=== PATIENT | female | born 1970 | race Hispanic/Latino ===

== ENCOUNTER 2024-03-28 12:16 | Emergency (ER) | payer BC, SELFPAY ==
[2024-03-28 12:33] VITALS: BP 117/71; PULSE 62; RESP 16; TEMP 36.2; O2SAT 100
--- NOTE | 2024-03-28 12:55 | ED_ITS ---
HPI - URI/Sore Throat General Chief Complaint: Upper Respiratory Infection Stated Complaint: right ear issue Time Seen by Provider: 03/28/24 12:58 Source: patient, RN notes reviewed and old records reviewed Mode of arrival: ambulatory Limitations: no limitations History of Present Illness HPI Narrative: Patient presents accompanied by her . Patient is complaining of right ear discomfort that has been present for about 1 week. She feels as though her hearing has decreased. She denies any injury or trauma. She denies all other complaints today. She voices no other concerns. She has not been taking any medication for her symptoms Related Data Home Medications Medication Instructions Recorded Confirmed No Home Medications 03/28/24 03/28/24 Allergies Allergy/AdvReac Type Severity Reaction Status Date / Time No Known Allergies Allergy Unverified 11/12/17 10:44 Review of Systems Review of Systems: All systems reviewed & are unremarkable except as noted in HPI and below Constitutional: Constitutional: Reports no additional constitutional complaints ENT: Reports system reviewed and no additional complaints, except as documented and Reports otalgia Cardiovascular: Cardiovascular: Reports no additional cardiovascular complaints Respiratory: Respiratory: Reports no additional respiratory complaints Gastrointestinal: Gastrointestinal: Reports no additional gastrointestinal complaints PMFSH Comments At the time of my signature, I reviewed and agree with the nursing past medical, surgical, social, and family history. There is no relevant family history pertinent to the patient complaint. Exam Const: General: cooperative, no acute distress, alert and awake Orientation/consciousness: oriented to person, oriented to place and oriented to time HENMT: Head: normal to inspection Ears: TM normal on the left and Abnormal EAC present cerumen impaction on the right Mouth: Yes moist mucous membranes Resp: Effort & Inspection: normal respiratory effort and able to speak in complete sentences Auscultation: clear to auscultation bilaterally, no crackles, no rales, no rhonchi and no wheezes Cardio: Palpation: normal PMI Rate: regular rate Rhythm: regular rhythm Heart sounds: S1 normal heart sound present and S2 normal heart sound present Neuro: General: oriented to person, oriented to place and oriented to time Cranial nerves: Yes CN's II-XII intact bilaterally Psych: Appearance: grossly normal Thought process: Normal thought process present Insight: Good insight present (Psych) Judgement: Good judgement present (Psych) Course Course Level of Care: Express Care Visit Vital Signs Vital signs: Vital Signs Temperature 97.1 F L 03/28/24 12:33 Pulse Rate 62 03/28/24 12:33 Respiratory Rate 16 03/28/24 12:33 Blood Pressure 117/71 03/28/24 12:33 Pulse Oximetry 100 03/28/24 12:33 Oxygen Delivery Room Air 03/28/24 12:33 Temperature 97.1 F L 03/28/24 12:33 Pulse Rate 62 03/28/24 12:33 Respiratory Rate 16 03/28/24 12:33 Blood Pressure 117/71 03/28/24 12:33 Pulse Oximetry 100 03/28/24 12:33 Oxygen Delivery Room Air 03/28/24 12:33 Reviewed Procedures Ear Wax Removal Right Ear: Ear Wax Removal Date: 03/28/24 Ear Wax Removal Time: 13:09 Cerumenolytic Used: other Results: Re-examined: cerumen removed completely TM Examination: TM(s) intact, normal appearance Patient Tolerated Procedure: well Complications: no problems Technique: ear canal irrigated and ear canal curetted MDM - URI/Sore Throat MDM Narrative Medical decision making narrative: Patient feeling much better want cerumen removed from right ear, procedure tolerated without difficulty. Discharge instructions reviewed with patient, as well as provided in writing per nursing staff. The instructions also include specific and strict return/GO TO THE ER as well as f/u information. All questions have been answered, and the patient deny any further questions with discharge and discharge plan. Some parts of this dictation were generated by voice recognition software and may contain typographical and/or grammatical inaccuracies. Differential Diagnosis Differential diagnosis: Likely other (Otitis media, otitis externa) Medical Records Attestation: I reviewed the patient's medical records. Discharge Plan Discharge Clinical Impression: Cerumen impaction Qualifiers: Laterality: right Qualified Code(s): H61.21 - Impacted cerumen, right ear Patient Disposition: Home, Self-Care Condition: Stable Instructions: Antibiotic Form, Carbamide Peroxide (Into the ear) Additional Instructions: Follow-up with primary care provider. Emergency department for new or worse symptoms Patient Language: Icelandic Prescriptions: No Action No Home Medications Follow-up/Referrals: PHYSICIAN,DIRECT SALES PROFESSIONAL [Primary Care Provider] - Time of Disposition: 13:24
== END 2024-03-28 13:32 | disposition home or self-care (01) ==
PROVIDERS: Emergency Provider Nurse Practitioner Family
DX: H61.21 Impacted cerumen, right ear (principal)
CPT/HCPCS: 69210; 99202; G0463

== ENCOUNTER 2024-11-01 14:56 | Emergency (ER) | payer SELFPAY ==
[2024-11-01] VITALS (11 sets, daily range): BP systolic 99–125; BP diastolic 58–64; PULSE 73–89; RESP 19–30; TEMP 36.7–38.4; O2SAT 94–98
--- NOTE | ~2024-11-01 | CT_ITS ---
CLINICAL INDICATION: Fever and weakness. COMPARISON: None. TECHNIQUE: Multiple contiguous axial images of the abdomen and pelvis were performed following the ad ministration of with 100 mL Omnipaque-350 intravenous contrast The dose-length product (DLP) was 328.48 mGy-cm. Automated exposure control and iterative reconstruction technique were employed. FINDINGS/OBSERVATIONS: Visualized lower thorax: Redemonstration of the infiltrate within the superior segment of the left lower lobe, seen on x-ray p erformed 10 minutes earlier. The heart is of normal size, without pericardial effusion. Small hiatal hernia is present. Liver: The liver demonstrates homogeneous enhancement and is not enlarged n. Gallbladder and biliary system: The gallbladder is only minimally distended, and otherwise unremarkable. Pancreas: The pancreas enhances homogeneously without ductal dilatation. Spleen: The spleen enhances homogeneously and is not enlarged . Kidneys: The bilateral kidneys enhance symmetrically without hydronephrosis or renal calculi. Adrenal glands: Unremarkable. Gastrointestinal tract: Fecal stasis within the colon. Appendix: The appendix is not definitively visualized. However, no pericecal inflammatory change is identified suggest the presence of acute appendicitis. Vasculature: Unremarkable. Lymph nodes: No pathologically enlarged or morphologically suspicious lymph nodes within the retroperitoneum or at the root of the mesentery. Pelvic structures: The bladder is decompressed, limiting its evaluation. The uterus is retroverted and retroflexed. Body wall and musculoskeletal: No significant degenerative disease within the lower thoracic or lumbosacral spine. IMPRESSION: Redemonstration of the infiltrate within the superior segment of the left lower lobe. No pathology detected within the remainder of the lower chest, abdomen or pelvis. Reviewed, dictated and finalized at location A. IMPRESSION: Redemonstration of the infiltrate within the superior segment of the left lower lobe. No pathology detected within the remainder of the lower chest, abdomen or pelvi s.
--- NOTE | ~2024-11-01 | XR_ITS ---
CHEST RADIOGRAPH, PA AND LATERAL CLINICAL HISTORY: fever . COMPARISON: None available TECHNIQUE: PA and lateral views of the chest. FINDINGS The cardiomediastinal silhouette is unremarkable. Infiltrate within the superior segment of the left lower lobe. The remainder of the lungs are clear. IMPRESSION: Infiltrate within the superior segment of the left lower lobe, as detailed above. Reviewed, dictated and finalized at location A. IMPRESSION: Infiltrate within the superior segment of the left lower lobe, as detailed noah [email or web address]
[2024-11-01] MEDS: ACETAMINOPHEN 500 MG TABLET 1000 MG PO (15:03)
--- NOTE | 2024-11-01 15:18 | ED_ITS ---
HPI - General Adult General Chief complaint: Fever <Berenice DohertyNEW - Last Filed: 11/01/24 15:21> Stated complaint: Fever <Berenice DohertyNEW - Last Filed: 11/01/24 15:21> Time Seen by Provider: 11/01/24 14:56 <Berenice DohertyNEW - Last Filed: 11/01/24 15:21> Focused HPI: Patient is a 54-year-old female who presents to the ER with a 3 day history of fever, headache, chills, bilateral arm and leg cramping, and fatigue. She has not includes speaking in presents to the ER with a family member who is her acting full time staff interpreter. Patient's full time staff interpreter reports she has no medical history relevant to this ER visit. He reports she has been sleeping all day for the past 3 days. She denies any abdominal pain, back pain, for sore throat. GENERAL: Ill-appearing, well-nourished, and in no acute distress. HEAD: Normocephalic, atraumatic. CHEST: Clear to auscultation. ?No respiratory distress. HEART: Tachycardia and regular rhythm. NEURO: ?Alert and oriented x3. Patient screened in triage and initial orders placed.? ?Additional care and disposition to be based upon?diagnostic testing and treatment. <Berenice McintoshTerri Doherty APRN - Last Filed: 11/01/24 15:21> Source: patient, family and RN notes reviewed <Addis Hobson MD - Last Filed: 11/01/24 21:55> Mode of arrival: ambulatory <Addis Hobson MD - Last Filed: 11/01/24 21:55> Limitations: language barrier <Addis Hobson MD - Last Filed: 11/01/24 21:55> History of Present Illness HPI narrative: This is a 54 year old female who presents with for evaluation of fever and tiredness. He states patient starting having fever off 99 F at home . He states that she has been having chills and fatigue. She is denying shortness of breath, abdominal pain, back pain, shortness of breath, nausea, vomiting or diarrhea. Her states she has mild cough. <Addis Hobson MD - Last Filed: 11/01/24 21:55> Related Data Allergies/adverse reactions: Allergies Allergy/AdvReac Type Severity Reaction Status Date / Time No Known Allergies Allergy Unverified 11/12/17 10:44 <Berenice Doherty APRN - Last Filed: 11/01/24 15:21> Review of Systems 2 Constitutional: Constitutional: Reports chills, Reports fatigue, Reports fever(s) and Denies headache(s) <Addis Hobson MD - Last Filed: 11/01/24 21:55> ENT: Denies sore throat, Denies throat swelling and Denies tongue swelling <Addis Hobson MD - Last Filed: 11/01/24 21:55> Cardiovascular: Cardiovascular: Denies chest pain with activity <Addis Hobson MD - Last Filed: 11/01/24 21:55> Respiratory: Respiratory: Denies chest congestion and Reports cough < Addis Hobson MD - Last Filed: 11/01/24 21:55> Gastrointestinal: Gastrointestinal: Denies diarrhea and Denies nausea < Addis Hobson MD - Last Filed: 11/01/24 21:55> Genitourinary: Genitourinary: Denies nocturia <Addis Hobson MD - Last Filed: 11/01/24 21:55> PMFSH Past Medical History Medical History: Medical History (Updated 11/01/24 @ 17:39 by Addis Hobson MD) Patient denies medical problems <Berenice Doherty APRN - Last Filed: 11/01/24 15:21> Surgical History Surgical History: Surgical History (Updated 11/01/24 @ 17:34 by Addis Hobson MD) No pertinent past surgical history <Berenice Doherty APRN - Last Filed: 11/01/24 15:21> Social History Social History: Social History (Updated 11/01/24 @ 17:34 by Addis Hobson MD) Smoking status: Never smoker <Berenice Doherty APRN - Last Filed: 11/01/24 15:21> Exam 2 Narrative: GENERAL: Well-appearing, well-nourished, and in no acute distress. HEAD: Normocephalic, atraumatic EYES: PERRLA and EOMI, conjunctiva clear without discharge EARS: TM's clear bilaterally without erythema or dullness NOSE: Nares clear, no rhinorrhea or epistaxis THROAT:Mucous membranes moist, Oropharynx normal without erythema, exudate, peritonsillar swelling or fluctuance NECK: Supple, without lymphadenopathy or mass RESPIRATORY: No respiratory distress, Airway patent, Respirations non-labored, Clear to auscultation without rales, rhonchi or wheeze HEART: Regular rate and rhythm. No murmur heard. Normal peripheral pulses. ABDOMEN: Soft, nontender, nondistended, normal active bowel sounds. No masses. No rebound or guarding, No organomegaly. EXTREMITIES: No edema, normal strength with full range of motion. SKIN: Warm, dry, normal color without rash NEURO: Alert and oriented x3. CN 2-12 grossly intact. No focal deficits. PSYCH: Normal mood and affect. <Addis Hobson MD - Last Filed: 11/01/24 21:55> Course Reevaluation(s) Reevaluation #1: Patient had fever but it has resolved after tylenol. She only has 1 of SIRS criteria so will discharge with antibiotics for pneumonia. She is 97% on room air. I discussed with and patient diagnosis and they were given return precautions. <Addis Hobson MD - Last Filed: 11/01/24 21:55> Date: 11/01/24 <Addis Hobson MD - Last Filed: 11/01/24 21:55> Time: 17:26 <Addis Hobson MD - Last Filed: 11/01/24 21:55> Vital Signs Vital signs: Vital Signs Pulse Rate 89 11/01/24 15:19 Respiratory Rate 20 11/01/24 15:19 Blood Pressure 125/63 11/01/24 15:19 Pulse Oximetry 96 11/01/24 15:19 Temperature 98.4 F 11/01/24 18:00 Pulse Rate 73 11/01/24 18:15 Respiratory Rate 21 H 11/01/24 18:15 Blood Pressure 99/64 L 11/01/24 18:00 Pulse Oximetry 96 11/01/24 18:15 Oxygen Delivery Room Air 11/01/24 15:21 <Berenice Doherty, PRODUCE DEPARTMENT SUPERVISOR - Last Filed: 11/01/24 15:21> Vital Signs Pulse Rate 89 11/01/24 15:19 Respiratory Rate 20 11/01/24 15:19 Blood Pressure 125/63 11/01/24 15:19 Pulse Oximetry 96 11/01/24 15:19 Temperature 98.4 F 11/01/24 18:00 Pulse Rate 73 11/01/24 18:15 Respiratory Rate 21 H 11/01/24 18:15 Blood Pressure 99/64 L 11/01/24 18:00 Pulse Oximetry 96 11/01/24 18:15 Oxygen Delivery Room Air 11/01/24 15:21 <Addis Hobson MD - Last Filed: 11/01/24 21:55> Medical Decision Making MDM Narrative Medical decision making narrative: Patient presented with fever. She had labs ordered and drawn in triage. Patient found to have fever of 101.2 F and she was given tylenol 1 g in triage. Labs shows normal wbc and no bands on labs. She has normal lactic acid and vitals signs are normal other than fever. Patient found to have infiltrate on xray and CT. Will give dose of rocephin. I encouraged patient to drink more fluid due to labs showing some dehydratoin <Addis Hobson MD - Last Filed: 11/01/24 21:55> Vital Signs Vital Signs: Vital Signs Pulse Rate 89 11/01/24 15:19 Respiratory Rate 20 11/01/24 15:19 Blood Pressure 125/63 11/01/24 15:19 Pulse Oximetry 96 11/01/24 15:19 Temperature 98.4 F 11/01/24 18:00 Pulse Rate 73 11/01/24 18:15 Respiratory Rate 21 H 11/01/24 18:15 Blood Pressure 99/64 L 11/01/24 18:00 Pulse Oximetry 96 11/01/24 18:15 Oxygen Delivery Room Air 11/01/24 15:21 <Berenice Doherty, PRODUCE DEPARTMENT SUPERVISOR - Last Filed: 11/01/24 15:21> Vital Signs Pulse Rate 89 11/01/24 15:19 Respiratory Rate 20 11/01/24 15:19 Blood Pressure 125/63 11/01/24 15:19 Pulse Oximetry 96 11/01/24 15:19 Temperature 98.4 F 11/01/24 18:00 Pulse Rate 73 11/01/24 18:15 Respiratory Rate 21 H 11/01/24 18:15 Blood Pressure 99/64 L 11/01/24 18:00 Pulse Oximetry 96 11/01/24 18:15 Oxygen Delivery Room Air 11/01/24 15:21 <Addis Hobson MD - Last Filed: 11/01/24 21:55> Lab Data Lab results reviewed: Yes I reviewed the patient's lab results. <Addis Hobson MD - Last Filed: 11/01/24 21:55> Result diagrams: 11/01/24 15:05 11/01/24 15:05 <Berenice Doherty APRN - Last Filed: 11/01/24 15:21> Labs: Lab Results 11/01/24 11/01/24 11/01/24 Range/Units 15:05 15:24 15:49 WBC 9.3 (4.5-10.0) K/mm3 RBC 4.24 (4.2-5.4) M/mm3 Hgb 12.2 (12.0-15.0) g/dL Hct 36.9 L (37.0-47.0) % MCV 87.0 (80-100) fl MCH 28.8 (26-34) pg MCHC 33.1 (32-36) g/dl RDW 14.3 (11.5-14.5) % Plt Count 221 (150-375) k/mm3 MPV 11.1 H (7.4-10.4) fl Immature Gran % (Auto) 0.3 (0-0.5) % Neut % (Auto) 81.6 H (45.5-73.1) % Lymph % (Auto) 12.8 L (18.3-44.2) % [place] % (Auto) 4.8 (2.6-8.5) % Eos % (Auto) 0.0 (0-4.4) % Baso % (Auto) 0.5 (0.2-1.2) % Lymph # (Auto) 1.19 (0.9-3.2) K/mm3 [place] # (Auto) 0.5 (0.1-0.6) K/mm3 Eos # (Auto) 0.0 (0-0.3) K/mm3 Baso # (Auto) 0.1 (0.0-0.1) K/mm3 Abs Immat Gran (auto) 0.03 (0.00-0.031) K/mm3 Absolute Neuts (auto) 7.6 H (1.3-6.7) K/mm3 Absolute Nucleated RBC 0.000 (0.0-0.012) K/mm3 Nucleated RBC % 0.0 (0.0-0.2) % PT 15.8 H (11.1-14.7) Seconds INR 1.3 APTT 33.1 (22.3-36.8) Seconds Sodium 134 L (137-145) mmol/L Potassium 3.7 (3.4-5.0) mmol/L Chloride 103 (98-107) mmol/L Carbon Dioxide 17 L (22-30) mmol/L Anion Gap 14 H (4-12) mmol/L BUN 10 (7-17) mg/dL Creatinine 0.83 (0.7-1.0) mg/dL Estim Creat Clear Calc 57 ml/min Estimated GFR > 60 (59 - ) Glucose 100 (65-110) mg/dL Lactic Acid 1.3 (0.7-2.0) mmol/L Calcium 8.5 (8.4-10.2) mg/dL Total Bilirubin 0.4 (0.2-1.3) mg/dL AST 33 (14-36) U/L ALT 20 (6-35) U/L Alkaline Phosphatase 117 (38-126) U/L C-Reactive Protein 14.9 H (<1.0) mg/dL Total Protein 8.8 H (6.3-8.2) g/dL Albumin 4.1 (3.5-5.1) g/dL Urine Color Dark yellow (Yellow) Urine Appearance Cloudy H (Clear) Urine pH 7.0 (5.0-9.0) Ur Specific [place] 1.025 (1.001-1.035) Urine Protein 2+ H (Negative) mg/dL Urine Glucose (UA) Negative (Negative) mg/dL Urine Ketones 3+ H (Negative) mg/dL Ur Blood (Man) Negative (Negative) Urine Nitrate Negative (Negative) Urine Bilirubin Negative (Negative) Urine Urobilinogen 1.0 (<2.0) mg/dL Leukocyte Esterase Rfl Negative (Negative) CHELLE/UL Urine RBC 11-20 H (0-2) /hpf Urine WBC 0-5 (0-3) /hpf Ur Squamous Epith Cells Occasional (Few) /hpf Urine Bacteria None seen /hpf Urine Casts 3-5 Influenza A (RT-PCR) Negative (Negative) Influenza B (RT-PCR) Negative (Negative) RSV (RT-PCR) Negative (Negative) SARS-CoV-2 RNA (RT-PCR) Negative (Negative) <Berenice Doherty, PRODUCE DEPARTMENT SUPERVISOR - Last Filed: 11/01/24 15:21> Lab Results 11/01/24 11/01/24 11/01/24 Range/Units 15:05 15:24 15:49 WBC 9.3 (4.5-10.0) K/mm3 RBC 4.24 (4.2-5.4) M/mm3 Hgb 12.2 (12.0-15.0) g/dL Hct 36.9 L (37.0-47.0) % MCV 87.0 (80-100) fl MCH 28.8 (26-34) pg MCHC 33.1 (32-36) g/dl RDW 14.3 (11.5-14.5) % Plt Count 221 (150-375) k/mm3 MPV 11.1 H (7.4-10.4) fl Immature Gran % (Auto) 0.3 (0-0.5) % Neut % (Auto) 81.6 H (45.5-73.1) % Lymph % (Auto) 12.8 L (18.3-44.2) % [place] % (Auto) 4.8 (2.6-8.5) % Eos % (Auto) 0.0 (0-4.4) % Baso % (Auto) 0.5 (0.2-1.2) % Lymph # (Auto) 1.19 (0.9-3.2) K/mm3 [place] # (Auto) 0.5 (0.1-0.6) K/mm3 Eos # (Auto) 0.0 (0-0.3) K/mm3 Baso # (Auto) 0.1 (0.0-0.1) K/mm3 Abs Immat Gran (auto) 0.03 (0.00-0.031) K/mm3 Absolute Neuts (auto) 7.6 H (1.3-6.7) K/mm3 Absolute Nucleated RBC 0.000 (0.0-0.012) K/mm3 Nucleated RBC % 0.0 (0.0-0.2) % PT 15.8 H (11.1-14.7) Seconds INR 1.3 APTT 33.1 (22.3-36.8) Seconds Sodium 134 L (137-145) mmol/L Potassium 3.7 (3.4-5.0) mmol/L Chloride 103 (98-107) mmol/L Carbon Dioxide 17 L (22-30) mmol/L Anion Gap 14 H (4-12) mmol/L BUN 10 (7-17) mg/dL Creatinine 0.83 (0.7-1.0) mg/dL Estim Creat Clear Calc 57 ml/min Estimated GFR > 60 (59 - ) Glucose 100 (65-110) mg/dL Lactic Acid 1.3 (0.7-2.0) mmol/L Calcium 8.5 (8.4-10.2) mg/dL Total Bilirubin 0.4 (0.2-1.3) mg/dL AST 33 (14-36) U/L ALT 20 (6-35) U/L Alkaline Phosphatase 117 (38-126) U/L C-Reactive Protein 14.9 H (<1.0) mg/dL Total Protein 8.8 H (6.3-8.2) g/dL Albumin 4.1 (3.5-5.1) g/dL Urine Color Dark yellow (Yellow) Urine Appearance Cloudy H (Clear) Urine pH 7.0 (5.0-9.0) Ur Specific [place] 1.025 (1.001-1.035) Urine Protein 2+ H (Negative) mg/dL Urine Glucose (UA) Negative (Negative) mg/dL Urine Ketones 3+ H (Negative) mg/dL Ur Blood (Man) Negative (Negative) Urine Nitrate Negative (Negative) Urine Bilirubin Negative (Negative) Urine Urobilinogen 1.0 (<2.0) mg/dL Leukocyte Esterase Rfl Negative (Negative) CHELLE/UL Urine RBC 11-20 H (0-2) /hpf Urine WBC 0-5 (0-3) /hpf Ur Squamous Epith Cells Occasional (Few) /hpf Urine Bacteria None seen /hpf Urine Casts 3-5 Influenza A (RT-PCR) Negative (Negative) Influenza B (RT-PCR) Negative (Negative) RSV (RT-PCR) Negative (Negative) SARS-CoV-2 RNA (RT-PCR) Negative (Negative) <Addis Hobson MD - Last Filed: 11/01/24 21:55> Imaging Data Radiologist's impression: ITS Impressions Chest X-Ray 11/01/24 16:56 IMPRESSION: Infiltrate within the superior segment of the left lower lobe, as detailed above. Abdomen/Pelvis CT 11/01/24 17:09 IMPRESSION: Redemonstration of the infiltrate within the superior segment of the left lower lobe. No pathology detected within the remainder of the lower chest, abdomen or pelvis. <Addis Hobson MD - Last Filed: 11/01/24 21:55> Discharge Plan Discharge Clinical Impression: Community acquired pneumonia <Berenice Doherty APRN - Last Filed: 11/01/24 15:21> Patient Disposition: Home <Berenice Doherty APRN - Last Filed: 11/01/24 15:21> Condition: Improved <Berenice Doherty APRN - Last Filed: 11/01/24 15:21> Instructions: Antibiotic Form, Bacterial Pneumonia (ED) <Berenice Doherty APRN - Last Filed: 11/01/24 15:21> Additional Instructions: Please take your antibiotics to completion. Please drink plenty of fluids and eat. <Berenice Doherty APRN - Last Filed: 11/01/24 15:21> Patient Language: Argentine <Berenice Doherty APRN - Last Filed: 11/01/24 15:21> Prescriptions: New doxycycline monohydrate 100 mg capsule 100 mg PO BID 7 Days Qty: 14 0RF <Berenice Doherty APRN - Last Filed: 11/01/24 15:21> Follow-up/Referrals: PHYSICIAN,BUCKLE SEWER [Primary Care Provider] - Toño Butler MD [Physician] - <Berenice Doherty APRN - Last Filed: 11/01/24 15:21>
[2024-11-01 15:25] LABS: Basophils Absolute Auto 0.1 K/mm3 (0.0-0.1); Basophils Percent Auto 0.5 % (0.2-1.2); Hematocrit 36.9 % (37.0-47.0); Hemoglobin 12.2 g/dL (12.0-15.0); Immature Granulocyte Absolute 0.03 K/mm3 (0.00-0.031); Immature Granulocyte Percent A 0.3 % (0-0.5); Lymphocytes Absolute Auto 1.19 K/mm3 (0.9-3.2); Lymphocytes Percent Auto 12.8 % (18.3-44.2); Mean Corpuscular HGB Conc 33.1 g/dl (32-36); Mean Corpuscular Hemoglobin 28.8 pg (26-34); Mean Platelet Volume 11.1 fl (7.4-10.4); Monocytes Absolute Auto 0.5 K/mm3 (0.1-0.6); Monocytes Percent Auto 4.8 % (2.6-8.5); Neutrophils Absolute Auto 7.6 K/mm3 (1.3-6.7); Neutrophils Percent Auto 81.6 % (45.5-73.1); Platelet Count Result 221 k/mm3 (150-375); Red Blood Count 4.24 M/mm3 (4.2-5.4); Red Cell Distribution Width 14.3 % (11.5-14.5); White Blood Count 9.3 K/mm3 (4.5-10.0)
--- NOTE | 2024-11-01 15:30 | PC.NURSE ---
Pt. originally registered as a new patient for this visit. Other record deleted. V.S. upon arrival: 1134: BP 119/51 02 98% RR 16 Temp 100.6 HR 100 1400: BP 110/98 02 96 RR 16 Temp 100.2 HR 103
[2024-11-01 15:34] LABS: Lactic Acid Reflex 1.3 mmol/L (0.7-2.0)
[2024-11-01 15:38] LABS: Alanine Aminotransferase 20 U/L (6-35); Albumin Level 4.1 g/dL (3.5-5.1); Alkaline Phosphatase 117 U/L (38-126); Anion Gap 14 mmol/L (4-12); Aspartate Amino Transferase 33 U/L (14-36); Bilirubin,Total 0.4 mg/dL (0.2-1.3); Blood Urea Nitrogen 10 mg/dL (7-17); Calcium 8.5 mg/dL (8.4-10.2); Carbon Dioxide 17 mmol/L (22-30); Chloride 103 mmol/L (98-107); Estimated CRCL calculation 57 ml/min; Estimated Glomerular Filt Rate > 60; Glucose 100 mg/dL (65-110); Potassium 3.7 mmol/L (3.4-5.0); Sodium 134 mmol/L (137-145); Total Protein 8.8 g/dL (6.3-8.2)
[2024-11-01 15:46] LABS: INR 1.3; Prothrombin Time 15.8 Seconds (11.1-14.7)
[2024-11-01 15:47] LABS: Partial Thromboplastin Time 33.1 Seconds (22.3-36.8)
[2024-11-01 15:51] LABS: Add Urine Microscopic? YES; Appearance Urine Cloudy (Clear); Bacteria Urine None Seen /hpf; Bilirubin Urine Negative (Negative); Blood Urine Negative (Negative); Color Urine Dark Yellow (Yellow); Glucose Urine UA Negative (Negative); Ketones Urine 3+ mg/dL (Negative); Leukocyte Esterase Ur Negative LEU/UL (Negative); Nitrate Urine Negative (Negative); Protein Urine 2+ mg/dL (Negative); Specific Grav Ur 1.025 (1.001-1.035); Squamous Epithelial Cell Urine Occasional /hpf (Few); WBC Urine 0-5 /hpf (0-3)
[2024-11-01 16:17] LABS: CRP. 14.9 mg/dL (<1.0)
[2024-11-01 16:32] LABS: Influenza A QL RT-PCR Negative (Negative); Influenza B QL RT-PCR Negative (Negative); RSV RNA, RT-PCR. Negative (Negative); SARS-CoV-2 RNA PCR Negative (Negative)
[2024-11-01] MEDS: DOXYCYCLINE HYCLATE 100 MG TABLET PO (17:44)
== END 2024-11-01 18:39 | disposition home or self-care (01) ==
PROVIDERS: Registered Nurse; Emergency Provider General Practice
DX: J18.9 Pneumonia, unspecified organism (principal); Z20.822 Contact with and (suspected) exposure to COVID-19
CPT/HCPCS: 36415; 71046; 74177; 80053; 81001; 83605; 85025; 85610; 85730; 86140; 87040; 87637; 96365; 99284; A9270; J0696; Q9967